=== PATIENT | male | born 1975 | race Caucasian/White ===

== ENCOUNTER 2017-07-04 18:50 | Emergency (ER) | payer OTHER ==
[2017-07-04] MEDS ORDERED: Sodium Chloride 0.9% 1,000 ML IV ONE (20:46)
--- NOTE | 2017-07-04 20:52 | ED Physician Chart ---
ED Chief Complaint/HPI - Patient Information Date Seen:: 07/04/17 Time Seen:: 19:30 Chief Complaint:: abdominal pain History of Present Illness:: location: abdomen quality: sharp achy pain severity: mild, mod duration: 24 hours context: reports onset of RLQ abdominal pain yesterday which has slowly gotten worse in the last 24 hours. has tolerated diet. no vomiting, no diarrhea. no dysuria, no hematuria. pain is moderate intensity, nonradiating. mod factors: none assoc s/s: none PSH: none hx from pt. Allergies:: Allergies Allergy/AdvReac Type Severity Reaction Status Date / Time No Known Allergies Allergy Verified 07/04/17 19:07 Vitals:: Vital Signs - 8 hr 07/04/17 19:07 Temp 98.6 F HR 80 RR 16 BP 143/84 O2 Sat % 97 Historian:: Patient Review:: Nurse's Note Reviewed ED Review of Systems - Review of Systems General/Constitutional: No fever, No chills, No weight loss, No weakness, No diaphoresis, No edema, No loss of appetite Skin: No skin lesions, No rash, No bruising Head: No headache, No light-headedness Eyes: No loss of vision, No pain, No diplopia ENT: No earache, No nasal drainage, No sore throat, No tinnitus Neck: No neck pain, No swelling, No thyromegaly, No stiffness, No mass noted Cardio Vascular: No chest pain, No palpitations, No PND, No orthopnea, No edema Pulmonary: No SOB, No cough, No sputum, No wheezing GI: No nausea, No vomiting, No diarrhea, Pain, No melena, No hematochezia, No constipation, No hematemesis G/U: No dysuria, No frequency, No hematuria Musculoskeletal: No bone or joint pain, No back pain, No muscle pain Endocrine: No polyuria, No polydipsia Psychiatric: No prior psych history, No depression, No anxiety, No suicidal ideation Hematopoietic: No bruising, No lymphadenopathy Allergic/Immuno: No urticaria, No angioedema Neurological: No syncope, No focal symptoms, No weakness, No paresthesia, No headache, No seizure, No dizziness, No confusion, No vertigo ED Past Medical History - Past Medical History Past Medical History: No significant medical hx Family History: None Social History: Non Smoker, No Alcohol, No Drug Use, Surgical History: None Psychiatricy History: None Medication: None ED Physical Exam - Physical Examination General/Constitutional: Awake, Well-developed, well-nourished, Alert, No distress, GCS 15, Non-toxic appearing, Ambulatory Head: Atraumatic Eyes: Lids, conjuctiva normal, PERRL, EOMI Skin: Nl inspection, No rash, No skin lesions, No ecchymosis, Well hydrated, No lymphadenopathy ENMT: External ears, nose nl, Nasal exam nl, Lips, teeth, gums nl Neck: Nontender, Full ROM w/o pain, No JVD, No nuchal rigidity, No bruit, No mass, No stridor Respiratory: Nl effort/Exclusion, Clear to Auscultation, No Wheeze/Rhonchi/Rales Cardio Vascular: RRR, No murmur, gallop, rubs, NL S1 S2 GI: No tenderness/rebounding/guarding (right lower quadrant tenderness, no rebound, abdomen is soft, scaphoid) : No CVA tenderness, NL external genitalia (circumcised penis, testicles bilateral descended, no mass, no wound, no lesion at penis or scrotum. left sided hernia exam. no hernia palpated. right side hernia exam, no hernia. ) Extremities: No tenderness or effusion, Full ROM, normal strength in all extremities, No edema Neuro/Psych: Alert/oriented, Normal sensory exam, Normal motor strength, Judgement/insight normal, Mood normal, Normal gait, No focal deficits Misc: Normal back, No paraspinal tenderness ED Labs/Radiology/EKG Results - Radiology Results Results: CT abdomen and pelvis no acute appendicitis no diverticulosis no diverticulitis small fat containing left inguinal hernia prominent prostate possible urinary bladder wall thickening RAD READ ultrasound scrotum/testicle ED Assessment - Assessment General Assessment: pt with RLQ abdominal pain. extra physical exam findings. abdominal exam: no rebound, no guarding, normal bowel sounds some RLQ tenderness hernia exam right side: no obvious hernia but pt is exquisitely tender at region of external inguinal ring. no mass is palpated. no overlying skin change no pus no fluctuance ED Septic Shock - . Is Septic Shock (SBP<90, OR Lactate>4 mmol\L) present?: No - <6hrs of presentation: Vital Signs: Vital Signs - 8 hr 04/17/18 19:07 Temp 98.6 F HR 80 RR 16 BP 143/84 O2 Sat % 97 ED Reassessment (Disposition) - Reassessment Reassessment:: pt in stable condition while in ER. Reassessment Condition:: Improved - Diagnosis Diagnosis:: right inguinal hernia - Aftercare/Follow up Instructions Aftercare/Follow-Up Instructions:: Refer to Discharge Instructions - Patient Disposition Discharge/Transfer:: Home Time:: 23:15 Condition at Disposition:: Stable, Improved
[2017-07-04 20:58] LABS: % BASOPHILS 1.4 % (0.0-2.0); % LYMPHOCYTES 29.3 % (20.0-50.0); % MONOCYTES 7.8 % (2.0-10.0); % NEUTROPHILS 59.5 % (40.0-80.0); BASOPHILE ABSOLUTE 0.1 Th/cumm (0-0.2); EOSINOPHILE ABSOLUTE 0.2 Th/cmm (0.1-0.4); HEMATOCRIT 42.5 % (41.0-60); HEMOGLOBIN 14.9 gm/dL (12-16); LYMPHOCYTE ABSOLUTE 2.3 Th/cmm (1.5-3.0); MEAN CELL VOLUME 90.8 fl (80-99); MEAN CORPUSCULAR HEMOGLOBIN 31.7 pg (26.0-30.0); MEAN PLATELET VOLUME 8.6 fl; MONOCYTE ABSOLUTE 0.6 Th/cmm (0.3-1.0); NEUTROPHILE ABSOLUTE 4.8 Th/cmm (1.8-8.0); PLATELET COUNT 170 Th/cmm (150-400); RED BLOOD COUNT 4.69 Mil/cmm (4.30-5.70); RED CELL DISTRIBUTION WIDTH 11.6 % (11.5-20.0)
[2017-07-04 20:58] LABS: URINE MICROSCOPIC INDICATED? YES; URINE SOURCE CLEAN C
[2017-07-04 21:04] LABS: URINE BILIRUBIN NEGATIVE (NEGATIVE); URINE BLOOD TRACE (NEGATIVE); URINE GLUCOSE (UA) NEGATIVE (NEGATIVE); URINE KETONE NEGATIVE (NEGATIVE); URINE LEUKOCYTE ESTERASE NEGATIVE (NEGATIVE); URINE NITRATE NEGATIVE (NEGATIVE); URINE PROTEIN NEGATIVE (NEGATIVE); URINE UROBILINOGEN 0.2 E.U./dL (0.2 - 1.0)
[2017-07-04 21:10] LABS: URINE BACTERIA NONE SEEN /hpf (NONE SEEN); URINE CLARITY SLIGHTLY HAZY (CLEAR); URINE COLOR YELLOW; URINE EPITHELIAL CELLS RARE /lpf (FEW)
[2017-07-04 21:15] LABS: ALB/GLOB RATIO 1.7 (1.0-1.8); ALBUMIN 4.2 gm/dL (4.2-5.5); ALKALINE PHOSPHATASE 50 U/L (34-104); ANION GAP 10.2 (7.0-16.0); BUN - UREA NITROGEN 16 mg/dL (7-25); CARBON DIOXIDE 27.6 mEq/L (21.0-31.0); CHLORIDE 104 mEq/L (98-107); CREATININE - SERUM 1.1 mg/dL (0.7-1.3); GFR AFRICAN-AMERICAN > 60.0 ml/min (>90); GFR NON AFRICAN-AMERICAN > 60.0 ml/min; GLUCOSE 87 mg/dL (70-105); POTASSIUM SERUM 3.8 mEq/L (3.5-5.1); SGOT 21 U/L (13-39); SGPT/ALT 27 U/L (7-52); SODIUM SERUM 138 mEq/L (136-145); TOTAL PROTEIN,SERUM 6.7 gm/dL (6.0-8.3)
--- NOTE | 2017-07-05 07:46 | Diagnostic Imaging Report ---
Testicular/scrotal ultrasound HISTORY: Inguinal hernia, pain The right testis measures 3.7 x 2.2 x 3.5 cm. No focal parenchymal lesions. Normal testicular vascular flow. The right epididymis appears normal. No hydrocele on the right side. The left testis measures 4.2 x 2.6 x 3.0 cm. No focal lesions. Normal testicular vascular flow. The left epididymis appears normal. No hydrocele. IMPRESSION: Negative examination
--- NOTE | 2017-07-05 08:08 | Diagnostic Imaging Report ---
CT abdomen and pelvis without intravenous contrast Indication: Right lower quadrant pain Comparison: None, Technique: Axial images were obtained from the lung bases to the bilateral proximal femurs without IV contrast. Coronal reconstructions were made. total DLP: 709, CTDI12.7 FINDINGS: Hypoventilatory and atelectatic changes of the lung bases are noted. Assessment of the solid organs is limited due to lack of IV contrast. No evidence of focal hepatic lesions. No radiopaque gallstones identified. No focal splenic, pancreatic, or adrenal lesions. No evidence of hydronephrosis or nephrolithiasis. Small fat-containing left inguinal hernia is noted. Minimal diverticulosis is noted without evidence of diverticulitis. Ingested material possibly pill is seen in the region of the ascending colon. There is no evidence of appendicitis. No evidence of free fluid or free air. There may be minimal urinary bladder wall thickening. Moderately prominent prostate gland is noted. Degenerative changes of the lower lumbar spine and SI joints are noted. IMPRESSION: No evidence of acute appendicitis. No evidence of bowel obstruction. Questionable slight urinary bladder wall thickening. Inflammatory process cannot be excluded. Mildly prominent prostate gland.
== END 2017-07-04 23:40 | disposition home or self-care (01) ==
LOC: ER 18:50
DX: K40.90 Unilateral inguinal hernia, without obstruction or gangrene, not specified as recurrent (principal)
CPT/HCPCS: 99285; 96372; 76870; 74176; 36415; 83605; 85025; 81001; 80053; J1885; J7030